=== PATIENT | female | born 1960 | race Caucasian/White ===

== ENCOUNTER 2019-06-18 22:18 | Emergency (ER) | payer OTHER ==
[~2019-06-18] VITALS: Ht 160 cm; Wt 115.7 kg
--- OUTSIDE RECORDS SUMMARY | 2019-06-18 22:20 | XMS REPORT ---
Author Author [facility] Address Unknown Phone Unavailable Care Team Providers Care Lumber Hacker Name Role Phone Unavailable Unavailable Problems This patient has no known problems. Allergies, Adverse Reactions, Alerts This patient has no known allergies or adverse reactions. Medications This patient has no known medications. Encounters Start Date/Time End Date/Time Encounter Type Admission Type Attending [facility] Care Facility Care Department Encounter ID 2019-01-22 14:48:06 Outpatient [id number] 2019-01-12 11:00:00 2019-01-12 11:00:00 Emergency E [facility] [id number]
--- OUTSIDE RECORDS SUMMARY | 2019-06-18 22:20 | XMS REPORT | Summary of Care ---
Author Author Karen Pate M.A. Unknown Address Unknown Phone Unavailable Care Team Providers Care Pilot Control Operator Helper Name Role Phone MELISSA PELAEZ M.D. Unavailable Unavailable SADI AMANDA M.D. Unavailable Unavailable KENA ESTRADA M.D. Unavailable Unavailable MONET ALMANZAR DO Unavailable Unavailable Unavailable Unavailable Functional Status Name Dates Details Functional status health issues are not documented Status: Name Dates Details Cognitive status health issues are not documented Status: Problems Name Dates Details Essential (primary) hypertension (401.9, I10) Status: Active Hyperlipidemia (272.4, E78.5) Status: Active Morbid obesity (278.01, E66.01) Status: Active Murmur (785.2, R01.1) Status: Active Shortness of breath (786.05, R06.02) Status: Active Medications Name Dates Details One Daily TABS TAKE 1 TABLET DAILY. Active Pantoprazole Sodium 40 MG Oral Tablet Delayed Release TAKE 1 TABLET DAILY. * Refills: 0 * Start : 22-Feb-2014 Active Rosuvastatin Calcium 20 MG Oral Tablet TAKE ONE (1) TABLET(S) BY MOUTH AT BEDTIME. * Quantity: 30 Refills: 0 MELISSA PELAEZ M.D. * Start : 16-Feb-2018 Active Lisinopril 10 MG Oral Tablet TAKE 1 TABLET Daily * Quantity: 1 Refills: 3 SADI AMANDA M.D. * Start : 28-May-2018 Active 30 Tablet Bottle Allergies and Adverse Reactions Name Dates Details No Known Drug Allergies (Allergy) Status: Active Past Medical History Name Dates Details History of anemia (V12.3, Z86.2) Status: Resolved History of bronchitis (V12.69, Z87.09) Status: Resolved History of cholelithiasis (V12.79, Z87.19) Status: Resolved History of esophageal reflux (V12.79, Z87.19) Status: Resolved History of Infection Of A Kidney (590.9) Status: Resolved History of Sinusitis (473.9, J32.9) Status: Resolved Procedures Procedure Dates Details History of Section Completed Immunization Name Dates Details Immunizations not documented Family History Name Dates Details Family history of Heart Disease (V17.49) Status: Active Family history of Coronary Artery Disease (V17.49) Status: Active Family history of Hypertension (V17.49) Status: Active Name Dates Details Family history of Cancer Status: Active Family history of Heart Disease (V17.49) Status: Active Family history of Coronary Artery Disease (V17.49) Status: Active Family history of Hypertension (V17.49) Status: Active Social History Name Dates Details Unknown if ever smoked Vital Signs Date Test Result Details No Known Vitals to report Results Date Description Value Details Results not documented Plan of Care Name Dates Details Planned Observations Planned Goals not documented Planned Encounters Appointment; KENA ESTRADA M.D. On: 04-Sep-2018 13:40 Interventions Provided Plan* HTN * - At [facility]. * - Continue lisinopril 1mg PO qd * - Low sodium diet * - BP log at home * HLD * - She is on statins now * - Low fat diet * - Recheck lipid panel * RTC 6 months Discussion/Summary* Clinical cardiac findings reviewed and discussed * EKG reviewed and discussed Instructions Name Dates Details Instructions not documented Encounters Appointment; SADI AMANDA M.D. Encounter Diagnosis: Problem not documented On: 25-Mar-2017 15:00 Appointment; SADI AMANDA M.D. Encounter Diagnosis: Problem not documented On: 19-Feb-2018 8:45 Appointment; KENA ESTRADA M.D. Encounter Diagnosis: Problem not documented On: 04-Sep-2018 13:40
[2019-06-18] MEDS ORDERED: ALBUTEROL/IPRATROPIUM 3 ML NEB NEB ONE (23:00)
[2019-06-18] MEDS ORDERED: ALBUTEROL/IPRATROPIUM 3 ML NEB ONE (23:15)
--- NOTE | 2019-06-18 23:17 | Diagnostic Imaging Report ---
EXAMINATION: CXR 2 VIEW - HOPD INDICATION: ^cough ^[id number] ^[id number] COMPARISON: None FINDINGS: PA and lateral views TUBES and LINES: None. LUNGS: Lungs are well inflated. There is no evidence of pneumonia or pulmonary edema. PLEURA: No pleural effusion or pneumothorax. HEART AND MEDIASTINUM: The cardiomediastinal silhouette is unremarkable.. BONES AND SOFT TISSUES: No focal osseous lesions. Soft tissues are unremarkable. UPPER ABDOMEN: Unremarkable. IMPRESSION: No acute thoracic abnormality. Signed by: Dr. Gavin Andrews MD on 06/18/2019 11:14 PM
== END 2019-06-18 23:47 | disposition home or self-care (01) ==
LOC: FSED 22:18
DX: R05 Cough (principal); J20.8 Acute bronchitis due to other specified organisms; I10 Essential (primary) hypertension
CPT/HCPCS: 71046; 99282